=== PATIENT | male | born 1985 | race Caucasian/White ===

== ENCOUNTER 2018-01-18 23:07 | Emergency (ER) | payer SELFPAY ==
[~2018-01-18] VITALS: Ht 195.6 cm; Wt 97.7 kg
[2018-01-19 00:19] LABS: HEMATOCRIT 49.2 % (38.0-50.0); HEMOGLOBIN 16.8 G/DL (12.5-16.6); MCH 33.5 PG (29.0-34.0); MCHC 34.1 G/DL (30.0-36.0); MCV 98.2 FL (86-99); PLATELET COUNT 240 K/uL (156-360); RBC DIS.WIDTH-CV 14.4 % (11.8-14.6); RBC DIS.WIDTH-SD 51.8 % (39-53); RED BLOOD COUNT 5.01 M/uL (4.00-5.50); WHITE BLOOD COUNT 7.2 K/uL (4.1-10.2)
[2018-01-19 00:29] LABS: CHLORIDE 109 mEq/L (99-109); SODIUM 148 mEq/L (136-147)
[2018-01-19 00:31] LABS: GLUCOSE 91 mg/dL (70-99)
[2018-01-19 00:34] LABS: SERUM ETHYL ALCOHOL 333 mg/dL
[2018-01-19 00:35] LABS: CREATININE 0.8 mg/dL (0.6-1.3)
[2018-01-19 00:36] LABS: UREA NITROGEN (BUN) 8 mg/dL (9-23)
[2018-01-19 00:37] LABS: GFR ESTIMATE (CALCULATED) > 59 mL/min/ (58.99-99999)
[2018-01-19 08:33] LABS: AMPHETAMINE NEGATIVE (500 ng/mL); BARBITURATES NEGATIVE (200 ng/mL); BENZODIAZEPINES PRESUMPTIVE POSITIVE (150 ng/mL); BUPRENORPHINE NEGATIVE (10 ng/mL); COCAINE PRESUMPTIVE POSITIVE (150 ng/mL); METHADONE NEGATIVE (200 ng/mL); METHAMPHETAMINE NEGATIVE (500 ng/mL); OPIATES (MORPHINE) NEGATIVE (100 ng/mL); OXYCODONE NEGATIVE (100 ng/mL); PHENCYCLIDINE NEGATIVE (25 ng/mL); PROPOXYPHENE NEGATIVE (300 ng/mL); THC CANNABINOIDS NEGATIVE (50 ng/mL); TRICYCLIC ANTIDEPRESSANTS NEGATIVE (300 ng/mL)
[2018-01-19 09:11] LABS: BENZODIAZEPINES, URINE SCREEN POSITIVE (200 ng/mL)
[2018-01-19 10:29] VITALS: BP 160/74
== END 2018-01-19 10:30 | disposition home or self-care (01) ==
LOC: EDBD 23:07 → EME 23:07
PROVIDERS: Emergency Medicine
DX: F33.1 Major depressive disorder, recurrent, moderate (principal); F10.129 Alcohol abuse with intoxication, unspecified; R45.851 Suicidal ideations; Y90.8 Blood alcohol level of 240 mg/100 ml or more; F17.200 Nicotine dependence, unspecified, uncomplicated
CPT/HCPCS: 80048; 84999; 85027; 90837; 99281; 99284; G0480

== ENCOUNTER 2018-01-20 15:33 | Emergency (ER) | payer SELFPAY ==
[~2018-01-20] VITALS: Ht 182.9 cm; Wt 98.4 kg
[2018-01-20 17:17] LABS: CHLORIDE 109 mEq/L (99-109); POTASSIUM 4.2 mEq/L (3.7-5.4); SODIUM 148 mEq/L (136-147)
[2018-01-20 17:19] LABS: GLUCOSE 100 mg/dL (70-99)
[2018-01-20 17:20] LABS: HEMATOCRIT 52.4 % (38.0-50.0); HEMOGLOBIN 17.9 G/DL (12.5-16.6); MCH 33.3 PG (29.0-34.0); MCHC 34.2 G/DL (30.0-36.0); MCV 97.4 FL (86-99); PLATELET COUNT 262 K/uL (156-360); RBC DIS.WIDTH-CV 14.2 % (11.8-14.6); RBC DIS.WIDTH-SD 51.8 % (39-53); RED BLOOD COUNT 5.38 M/uL (4.00-5.50); WHITE BLOOD COUNT 11.1 K/uL (4.1-10.2)
[2018-01-20 17:22] LABS: SERUM ETHYL ALCOHOL 413 mg/dL
[2018-01-20 17:23] LABS: CREATININE 0.9 mg/dL (0.6-1.3); GFR ESTIMATE (CALCULATED) > 59 mL/min/ (58.99-99999)
[2018-01-20 17:26] LABS: SALICYLATE < 5.0 MG/DL (15-30)
[2018-01-20 17:27] LABS: UREA NITROGEN (BUN) 11 mg/dL (9-23)
[2018-01-20 17:29] LABS: ACETAMINOPHEN (TYLENOL) < 10 mcg/mL (10-30)
[2018-01-20 21:37] LABS: AMPHETAMINE NEGATIVE (500 ng/mL); BARBITURATES NEGATIVE (200 ng/mL); BENZODIAZEPINES PRESUMPTIVE POSITIVE (150 ng/mL); BUPRENORPHINE NEGATIVE (10 ng/mL); COCAINE PRESUMPTIVE POSITIVE (150 ng/mL); METHADONE NEGATIVE (200 ng/mL); METHAMPHETAMINE NEGATIVE (500 ng/mL); OPIATES (MORPHINE) NEGATIVE (100 ng/mL); OXYCODONE NEGATIVE (100 ng/mL); PHENCYCLIDINE NEGATIVE (25 ng/mL); PROPOXYPHENE NEGATIVE (300 ng/mL); THC CANNABINOIDS NEGATIVE (50 ng/mL); TRICYCLIC ANTIDEPRESSANTS NEGATIVE (300 ng/mL)
[2018-01-20 22:06] LABS: BENZODIAZEPINES, URINE SCREEN POSITIVE (200 ng/mL)
[2018-01-21 06:27] VITALS: BP 123/61
[2018-01-21] MEDS ORDERED: DIAZEPAM10 MG PO (16:21)
== END 2018-01-21 06:39 | disposition home or self-care (01) ==
LOC: EME 15:33
PROVIDERS: Emergency Medicine
DX: F10.129 Alcohol abuse with intoxication, unspecified (principal); R10.9 Unspecified abdominal pain; R11.2 Nausea with vomiting, unspecified; F32.9 Major depressive disorder, single episode, unspecified; R45.851 Suicidal ideations; F43.23 Adjustment disorder with mixed anxiety and depressed mood; F17.200 Nicotine dependence, unspecified, uncomplicated; Y90.8 Blood alcohol level of 240 mg/100 ml or more
CPT/HCPCS: 80048; 84999; 85027; 90837; 99281; 99285; C9113; G0480; J1200; J2405; J2765; J7030

== ENCOUNTER 2018-01-21 12:17 | Inpatient (IN) | payer OTHER ==
[~2018-01-21] VITALS: Ht 195.6 cm; Wt 104.5 kg
[2018-01-21 13:00] LABS: HEMATOCRIT 47.9 % (38.0-50.0); HEMOGLOBIN 16.7 G/DL (12.5-16.6); MCH 33.3 PG (29.0-34.0); MCHC 34.9 G/DL (30.0-36.0); MCV 95.4 FL (86-99); PLATELET COUNT 286 K/uL (156-360); RBC DIS.WIDTH-CV 14.1 % (11.8-14.6); RBC DIS.WIDTH-SD 49.4 % (39-53); RED BLOOD COUNT 5.02 M/uL (4.00-5.50); WHITE BLOOD COUNT 13.5 K/uL (4.1-10.2)
[2018-01-21 13:13] LABS: ALBUMIN 3.9 g/dL (3.2-4.8)
[2018-01-21 13:14] LABS: CHLORIDE 100 mEq/L (99-109); POTASSIUM 4.3 mEq/L (3.7-5.4)
[2018-01-21 13:16] LABS: TOTAL PROTEIN 6.6 g/dL (6.4-8.3)
[2018-01-21 13:18] LABS: TOTAL BILIRUBIN 2.1 mg/dL (0.0-1.0)
[2018-01-21 13:19] LABS: ALKALINE PHOSPHATASE 84 IU/L (3-129); GLUCOSE 184 mg/dL (70-99); SODIUM 139 mEq/L (136-147)
[2018-01-21 13:20] LABS: GFR ESTIMATE (CALCULATED) > 59 mL/min/ (58.99-99999)
[2018-01-21 13:21] LABS: AST (GOT) 34 IU/L (2-34); UREA NITROGEN (BUN) 20 mg/dL (9-23)
[2018-01-21 13:37] LABS: SERUM ETHYL ALCOHOL < 10 mg/dL
[2018-01-21 13:37] LABS: APPEARANCE CLEAR ((CLEAR)); BILIRUBIN NEGATIVE; BLOOD NEGATIVE; COLOR AMBER ((YELLOW)); GLUCOSE (STRIP) NEGATIVE; KETONES 80; LEUKOCYTES NEGATIVE; NITRITE NEGATIVE; PROTEIN (STRIP) 100; SPECIFIC GRAVITY 1.033 (1.000-1.030)
[2018-01-21 13:40] LABS: BACTERIA RARE /HPF; EPITHELIAL CELLS NONE SEEN /HPF; MUCUS 3+ /LPF; RED BLOOD CELLS 15-20 /HPF (0-5); UCUL ADDED? NO; WHITE BLOOD CELLS 0-5 /HPF (0-5)
[2018-01-21 13:40] LABS: ALT (GPT) 23 IU/L (3-49)
[2018-01-21 15:41] LABS: LIPASE 249 U/L (1.0-51.0)
[2018-01-21 15:44] LABS: MAGNESIUM 1.6 mg/dL (1.3-2.7)
[2018-01-21] MEDS ORDERED: DIAZEPAM10 MG PO (16:21)
[2018-01-21 19:29] VITALS: BP 138/87
[2018-01-21 23:49] VITALS: BP 141/77
[2018-01-22 05:43] LABS: HEMATOCRIT 44.6 % (38.0-50.0); HEMOGLOBIN 14.8 G/DL (12.5-16.6); MCH 32.9 PG (29.0-34.0); MCHC 33.2 G/DL (30.0-36.0); MCV 99.1 FL (86-99); RBC DIS.WIDTH-CV 14.4 % (11.8-14.6); WHITE BLOOD COUNT 13.6 K/uL (4.1-10.2)
[2018-01-22 06:01] LABS: ALBUMIN 3.1 G/DL (3.2-4.8); ALKALINE PHOSPHATASE 66 IU/L (3-129); ALT (GPT) 13 IU/L (3-49); AST (GOT) 23 IU/L (2-34); CHLORIDE 104 MEQ/L (99-109); CREATININE 0.9 MG/DL (0.6-1.3); GFR ESTIMATE (CALCULATED) > 59 mL/min/ (58.99-99999); GLUCOSE 96 mg/dL (70-99); SODIUM 139 MEQ/L (136-147); TOTAL BILIRUBIN 1.1 MG/DL (0.0-1.0); UREA NITROGEN (BUN) 16 mg/dL (9-23)
[2018-01-22 06:02] LABS: ALBUMIN 3.1 G/DL (3.2-4.8); ALKALINE PHOSPHATASE 68 IU/L (3-129); ALT (GPT) 15 IU/L (3-49); AST (GOT) 22 IU/L (2-34); DIRECT BILIRUBIN 0.3 mg/dL (0.0-0.3)
[2018-01-22 06:14] LABS: PLATELET COUNT 187 K/uL (156-360)
[2018-01-22 07:58] VITALS: BP 156/86
[2018-01-22 08:41] LABS: LIPASE 84 U/L (1.0-51.0)
[2018-01-22 15:57] VITALS: BP 134/69
[2018-01-23] VITALS: BP 131/64
[2018-01-23 07:33] LABS: HEMATOCRIT 40.4 % (38.0-50.0); HEMOGLOBIN 13.1 G/DL (12.5-16.6); MCHC 32.4 G/DL (30.0-36.0); MCV 98.5 FL (86-99); PLATELET COUNT 142 K/uL (156-360); RBC DIS.WIDTH-CV 13.9 % (11.8-14.6); RBC DIS.WIDTH-SD 51.2 % (39-53); WHITE BLOOD COUNT 11.4 K/uL (4.1-10.2)
[2018-01-23 08:02] LABS: ALBUMIN 2.8 G/DL (3.2-4.8); ALKALINE PHOSPHATASE 64 IU/L (3-129); ALT (GPT) 11 IU/L (3-49); AST (GOT) 15 IU/L (2-34); CHLORIDE 103 MEQ/L (99-109); CREATININE 0.7 MG/DL (0.6-1.3); DIRECT BILIRUBIN 0.1 mg/dL (0.0-0.3); GFR ESTIMATE (CALCULATED) > 59 mL/min/ (58.99-99999); GLUCOSE 88 mg/dL (70-99); SODIUM 138 MEQ/L (136-147); TOTAL PROTEIN 4.6 G/DL (6.4-8.3); UREA NITROGEN (BUN) 6 mg/dL (9-23)
[2018-01-23 08:03] VITALS: BP 117/69
[2018-01-23 08:04] LABS: TOTAL BILIRUBIN 0.7 MG/DL (0.0-1.0)
[2018-01-23] MEDS ORDERED: TORADOL10 MG PO (12:13)
[2018-01-23 15:04] VITALS: BP 127/77
[2018-01-23 23:45] VITALS: BP 140/82
[2018-01-24 07:18] VITALS: BP 137/77
== END 2018-01-24 15:56 | disposition home or self-care (01) | DRG 439 ==
LOC: EME 12:17 → EDOF 17:36 → 5SOUTH 17:36 → ENRESERV 17:45 → 5SOUTH 19:15 → ENPENDDIS 01-24 15:01 → 5SOUTH 01-24 15:56
PROVIDERS: Internal Medicine; Nurse Practitioner Adult Health
DX: K85.20 Alcohol induced acute pancreatitis without necrosis or infection (principal); E87.2 Acidosis; E83.39 Other disorders of phosphorus metabolism; R17 Unspecified jaundice; F10.20 Alcohol dependence, uncomplicated; Y90.0 Blood alcohol level of less than 20 mg/100 ml; F32.9 Major depressive disorder, single episode, unspecified; F17.210 Nicotine dependence, cigarettes, uncomplicated
CPT/HCPCS: 74177; 80048; 80053; 80076; 81003; 82010; 82248; 82948; 83690; 83735; 84100; 84999; 85027; 90837; 99281; 99284; 99285; C9113; G0480; J1170; J1200; J1650; J1885; J2060; J2405; J2765; J3010; J3411; J3475; J7030; J7040; S0028

== ENCOUNTER 2018-02-18 15:21 | Emergency (ER) | payer OTHER ==
[~2018-02-18] VITALS: Ht 195.6 cm; Wt 90.9 kg
[~2018-02-18 15:21] MED LIST: DIAZEPAM10 MG PO; NEURONTIN100 MG PO; REMERON15 M2 PO; TORADOL10 MG PO; ZOLOFT50 MG PO
[2018-02-18 16:45] LABS: BASOPHIL (%) 0.4 % (0-1); EOSINOPHIL (%) 1.1 % (0-5); EOSINOPHIL COUNT 0.1 K/uL (0-0.3); HEMATOCRIT 46.6 % (38.0-50.0); HEMOGLOBIN 15.8 G/DL (12.5-16.6); IMMATURE GRANULOCYTE (%) 0.3 % (0.0-0.7); LYMPHOCYTE COUNT 2.4 K/uL (1.0-2.8); MCH 32.6 PG (29.0-34.0); MCHC 33.9 G/DL (30.0-36.0); MCV 96.1 FL (86-99); MONOCYTE (%) 5.4 % (3-12); MONOCYTE COUNT 0.6 K/uL (0-0.8); NEUTROPHIL (%) 68.8 % (45-76); PLATELET COUNT 228 K/uL (156-360); RBC DIS.WIDTH-CV 13.4 % (11.8-14.6); RBC DIS.WIDTH-SD 47.9 % (39-53); RED BLOOD COUNT 4.85 M/uL (4.00-5.50); WHITE BLOOD COUNT 10.1 K/uL (4.1-10.2)
[2018-02-18 16:50] LABS: AMPHETAMINE NEGATIVE (500 ng/mL); BARBITURATES NEGATIVE (200 ng/mL); BENZODIAZEPINES NEGATIVE (150 ng/mL); BUPRENORPHINE NEGATIVE (10 ng/mL); COCAINE NEGATIVE (150 ng/mL); METHADONE NEGATIVE (200 ng/mL); METHAMPHETAMINE NEGATIVE (500 ng/mL); OPIATES (MORPHINE) NEGATIVE (100 ng/mL); OXYCODONE NEGATIVE (100 ng/mL); PHENCYCLIDINE NEGATIVE (25 ng/mL); PROPOXYPHENE NEGATIVE (300 ng/mL); THC CANNABINOIDS NEGATIVE (50 ng/mL); TRICYCLIC ANTIDEPRESSANTS NEGATIVE (300 ng/mL)
[2018-02-18 16:57] LABS: CHLORIDE 106 mEq/L (99-109); POTASSIUM 4.4 mEq/L (3.7-5.4); SODIUM 144 mEq/L (136-147)
[2018-02-18 16:59] LABS: GLUCOSE 97 mg/dL (70-99)
[2018-02-18 17:02] LABS: SERUM ETHYL ALCOHOL 211 mg/dL
[2018-02-18 17:03] LABS: CREATININE 0.9 mg/dL (0.6-1.3); GFR ESTIMATE (CALCULATED) > 59 mL/min/ (58.99-99999)
[2018-02-18 17:04] LABS: UREA NITROGEN (BUN) 7 mg/dL (9-23)
[2018-02-18 22:03] VITALS: BP 125/77
== END 2018-02-18 22:04 | disposition home or self-care (01) ==
LOC: EME 15:21
PROVIDERS: Emergency Medicine
DX: F10.129 Alcohol abuse with intoxication, unspecified (principal); F43.23 Adjustment disorder with mixed anxiety and depressed mood; R00.0 Tachycardia, unspecified; Y90.7 Blood alcohol level of 200-239 mg/100 ml; F17.200 Nicotine dependence, unspecified, uncomplicated
CPT/HCPCS: 80048; 85025; 90837; 99281; 99285; G0480